=== PATIENT | female | born 1955 | race Caucasian/White ===

== ENCOUNTER 2019-03-28 18:07 | Observation (INO) | payer BC ==
[~2019-03-28 18:07] MED LIST: CHOL100018 PO; SIMV20TA6 PO
[2019-03-28 18:47] LABS: BASOPHILS % (AUTO) 1.1 % (0.0-5.0); HEMATOCRIT 48.7 % (36-48); LYMPHOCYTES % (AUTO) 30.2 % (21.0-51.0); MEAN CORPUSCULAR HEMOGLOBIN 30.9 pg (27.0-33.0); MEAN CORPUSCULAR HGB CONC 33.5 g/dL (32.0-36.0); MEAN CORPUSCULAR VOLUME 92.3 fL (79-99); MONOCYTES % (AUTO) 8.1 % (3.0-13.0); NEUTROPHILS % (AUTO) 59.6 % (40.0-77.0); PLATELET COUNT (AUTO) 164 K/uL (130-400); RED BLOOD CELL COUNT(AUTO) 5.27 MIL/uL (4.00-5.50); RED CELL DISTRIBUTION WIDTH 14.6 % (11.0-15.5); WHITE BLOOD COUNT (AUTO) 10.5 K/uL (4.8-10.8)
[2019-03-28 18:57] LABS: INR 1.02 (0.85-1.15); PARTIAL THROMBOPLASTIN TIME 28.1 SEC (26.3-35.5); PROTHROMBIN TIME 10.7 SEC (9.6-11.6)
[2019-03-28 18:59] LABS: CREATININE 0.6 mg/dL (0.5-1.5); POTASSIUM 3.8 mmol/L (3.5-5.1)
[2019-03-28 19:06] LABS: APPEARANCE,URINE Clear (CLEAR); BILIRUBIN,URINE Negative (NEGATIVE); COLOR,URINE Yellow (YELLOW); GLUCOSE, URINE (UA) Negative (NEGATIVE); KETONES,URINE Negative (NEGATIVE); LEUKOCYTE ESTERASE ,URINE Negative (NEGATIVE); NITRATE,URINE Negative (NEGATIVE); OCCULT BLOOD,URINE Small (NEGATIVE); PROTEIN,URINE POS 1+ mg/dL (NEGATIVE)
[2019-03-28 19:06] LABS: ALBUMIN 3.7 g/dL (3.5-5.0); BILIRUBIN,TOTAL 0.4 mg/dL (0.2-1.0); TOTAL PROTEIN, SERUM 7.3 g/dL (6.0-8.3)
[2019-03-28 19:16] LABS: BACTERIA,URINE Few /HPF (None Seen); MUCUS,URINE Moderate LPF (None Seen); SQUAMOUS EPITHELIAL CELL,UR 0-2 /HPF (0-2)
[2019-03-28] MEDS ORDERED: ATORVASTATIN CALCIUM 20 MG TABLET PO SCH (21:00)
[2019-03-28] MEDS ORDERED: ASPIRIN 325 MG TABLET ONE (21:10)
[2019-03-28] MEDS ORDERED: NITROGLYCERIN 1GM/1 INCH PACKET TD ONE (21:10)
[2019-03-28] MEDS ORDERED: LABETALOL HCL 5 MG/ML 20ML VIAL IV ONE (21:55)
[2019-03-28] MEDS ORDERED: HYDRALAZINE HCL 20 MG/ML VIAL IV PRN (22:30)
[2019-03-28] MEDS ORDERED: LACTULOSE 20 GM/30 ML UDCUP PO PRN (22:30)
[2019-03-28] MEDS ORDERED: ACETAMINOPHEN 325 MG TAB PO PRN ×2 (22:30)
[2019-03-28] MEDS ORDERED: NITROGLYCERIN 0.4 MG SL TAB SL PRN (22:30)
[2019-03-28] MEDS ORDERED: ONDANSETRON HCL 4 MG/2 ML VIAL IVP PRN (22:45)
[2019-03-28] MEDS ORDERED: IPRATROPIUM/ALBUTEROL SULFATE 3 ML SOLUTION IH PRN (22:45)
[2019-03-29 00:18] LABS: CHOLESTEROL 211 mg/dL (<200); LDL DIRECT 146 mg/dL (0-99); TRIGLYCERIDES 129 mg/dL (30-200)
[2019-03-29 00:56] LABS: HDL CHOLESTEROL 49 mg/dL (35-85)
[2019-03-29 02:35] LABS: CREATINE KINASE, TOTAL 86 U/L (21-232); MYOGLOBIN 35 ng/mL (10-92); TROPONIN I < 0.04 ng/mL (0.00-0.06)
[2019-03-29 08:26] LABS: CREATINE KINASE, TOTAL 81 U/L (21-232); MYOGLOBIN 28 ng/mL (10-92); TROPONIN I < 0.04 ng/mL (0.00-0.06)
[2019-03-29] MEDS ORDERED: FAMOTIDINE/PF 20 MG/2 ML VIAL IV SCH (09:00)
[2019-03-29] MEDS ORDERED: ENOXAPARIN SODIUM 40 MG/0.4 ML SYRINGE SQ SCH (09:00)
[2019-03-29] MEDS ORDERED: ASPIRIN 325 MG TABLET PO SCH (09:00)
[2019-03-29] MEDS ORDERED: METOPROLOL TARTRATE 25 MG TAB PO SCH (09:00)
[2019-03-29] MEDS ORDERED: ASPIRIN 325 MG TABLET ONE (09:19)
[2019-03-29] MEDS ORDERED: ENOXAPARIN SODIUM 40 MG/0.4 ML SYRINGE SQ ONE (09:20)
[2019-03-29] MEDS ORDERED: ATORVASTATIN CALCIUM 20 MG TABLET ONE (09:20)
[2019-03-29] MEDS ORDERED: METOPROLOL TARTRATE 50 MG TAB ONE (09:20)
[2019-03-29] MEDS ORDERED: FAMOTIDINE/PF 20 MG/2 ML VIAL IV ONE (09:21)
[2019-03-29] MEDS ORDERED: METO25TA6 PO (11:33)
[2019-03-29] MEDS ORDERED: ATOR40TA71 PO (11:33)
[2019-03-29] MEDS ORDERED: AEC81 PO (11:33)
== END 2019-03-29 13:34 | disposition home or self-care (01) ==
LOC: EDH 18:07 → EDHIP 22:30
PROVIDERS: ADMIT Internal Medicine; ATTEND Internal Medicine
DX: R07.89 Other chest pain (principal); J44.9 Chronic obstructive pulmonary disease, unspecified; E78.5 Hyperlipidemia, unspecified; Z88.5 Allergy status to narcotic agent; I10 Essential (primary) hypertension; F17.210 Nicotine dependence, cigarettes, uncomplicated; R79.89 Other specified abnormal findings of blood chemistry; Z79.82 Long term (current) use of aspirin; Z90.710 Acquired absence of both cervix and uterus; Z79.899 Other long term (current) drug therapy
CPT/HCPCS: 36415 ×2; 71046; 80053; 80061; 81001; 82550 ×3; 83874 ×2; 84484 ×4; 85025; 85610; 85730; 93005 ×2; 94664; 99284; G0378 ×15; J1650; J3490 ×2